=== PATIENT | male | born 2000 | race Caucasian/White ===

== ENCOUNTER 2020-04-05 19:40 | Outpatient (REF) | payer MEDICAID, SELFPAY | END 2020-04-05 20:00 | LOC: NCHCN 19:40 | PROVIDERS: PCP Nurse Practitioner Family; Visit Provider Nurse Practitioner Family | DX: L08.9 Local infection of the skin and subcutaneous tissue, unspecified (principal) | CPT/HCPCS: 87070; 87205 ==

== ENCOUNTER 2022-07-28 11:56 | Emergency (ER) | payer MEDICAID, SELFPAY ==
[2022-07-28 12:01] VITALS: BP 151/87; PULSE 83; RESP 18; TEMP 35.9; O2SAT 99
--- NOTE | 2022-07-28 12:25 | ED.GENADUL_ITS ---
Discharge Plan Disposition Patient Disposition: HOME Condition: Improving Discharge Details Clinical Impression: Abscess, intraoral Primary Care Provider: Tab Alexander ED Provider: Otf Quiroz Home Meds and New Rx's Prescriptions: New penicillin V potassium 500 mg tablet 500 mg PO TID 10 Days Qty: 30 0RF Discharge Instructions Instructions: Abscess (ED) Additional Instructions: Continue swish, gargle and spit with salt water today. Penicillin every 6 hours for the first 24 hours, then 3 times per day. Please follow-up with dentistry for recheck. See enclosed resources. Tylenol and/or ibuprofen as needed for pain. Continue to decrease your use of cigarettes. Medical Decision Making This is a 21-year-old male with poor dentition. He has had approximately 2 to 3 weeks of right lower mandible swelling and discomfort. Worse today and associated with more pronounced buccal aspect fluctuance. He does have evidence of abscess on initial exam. Consented for local anesthesia with initial needle aspiration of 4 cc purulent fluid subsequently the area was incised with an 11 blade and further purulent fluid was expressed. Patiently placed on penicillin. He will benefit from follow-up with dentistry and likely will need extractions. He is stable and improved at this time. HPI General Mode of arrival: ambulatory . Date/Time Provider Initiated Documentation: 07/28/22 11:58 . Limitations to Documentation: no limitations . Information obtained by: patient and family . History of Present Illness 21 year old M presents to the emergency department with the chief complaint of Right lower tooth infection and swelling, described as moderate, Quality is described as dull and constant, and is localized to the face and right. Patient reports no radiation. Patient started experiencing this day(s) and it has been constant. No relieving factors improve symptom(s), No ex acerbating factors reported . Patient notes denies cough and fever/chills. Patient did receive the following treatments prior to arrival, none Related Data Home Medications Medication Instructions Recorded Confirmed penicillin V potassium 500 mg 500 mg PO TID 10 days #30 tabs 07/28/22 tablet Previous Rx's Medication Instructions Recorded penicillin V potassium 500 mg 500 mg PO TID 10 days #30 tabs 07/28/22 tablet Allergies Allergy/AdvReac Type Severity Reaction Status Date / Time No Known Allergies Allergy Unverified 07/28/22 12:04 General Stated Complaint: DentalOral MED: 4 PFSH All Active Problems (Updated 07/28/22 @ 12:28 by Otf Quiroz MD) Abscess, intraoral (Acute) Social History Smoking/Tobacco Use Status: Current every day Smoking risk assessment performed?: Yes Alcohol Intake: current Alcohol Intake frequency: a few times a month Drug use: Daily Substance use type: marijuana Do you feel safe at home: Yes Do you feel safe in your relationship?: Yes Exam Narrative Exam Narrative: GEN: awake, alert, oriented 3. Pleasant, well groomed, interactive. HEAD: Normocephalic, atraumatic ENT: Mucous membranes moist, oropharynx with numerous missing teeth, partially broken teeth and dental caries. There is buccal aspect swelling all the lateral right mandible. No lingual aspect swelling, uvula is midline and the oropharynx is otherwise unremarkable EYES: PERRL, EOMI NECK: Full ROM, no QUINTIN, no menigismus CHEST/RESP: No respiratory distress pulse bilateral ABDOMEN: Soft, nontender, no mass. +Bowel sounds EXT: Full ROM, no edema, no rash Neuro: Grossly normal neurologic exam, conversant, interactive. Psych: Speech fluent, thoughts congruent, affect normal Course Vital Signs Vital signs: Vital Signs Temperature 35.9 C L 07/28/22 12:01 Pulse 83 07/28/22 12:01 Respiratory Rate 18 07/28/22 12:01 Blood Pressure 151/87 H 07/28/22 12:01 Pulse Oximetry 99 07/28/22 12:01 Temperature 35.9 C L 07/28/22 12:01 Temperature Source Temporal Artery Scan 07/28/22 12:01 Pulse 83 07/28/22 12:01 Respiratory Rate 18 07/28/22 12:01 Respiratory Effort Non-Labored 07/28/22 12:05 Blood Pressure 151/87 H 07/28/22 12:01 Blood Pressure Position Sitting 07/28/22 12:01 Pulse Oximetry 99 07/28/22 12:01 Oxygen Delivery Method Room Air 07/28/22 12:01 Oxygen Flow Rate 0 07/28/22 12:01 Procedures Abscess I/D Site: Other (Mouth) Side (if applicable): Right Local Anesthetic: Lidocaine 1% Amount of anesthesia used (mL): 2 Technique: Needle Aspiration and Incised with #11 Blade Amount of fluid expressed (mL): 4 PAWSS Have you Been Recently Intoxicated or Drunk Within the Last 30 days?: No Have you Ever Experienced Previous Episodes of Alcohol Withdrawal?: No Have you ever Experienced Withdrawal Seizures?: No Have you ever Experienced Delirium Tremens(DT)s?: No Have you ever undergone Alcohol Rehabilitation Treatment (i.e, inpt ot outpatient treatment programs)?: No Have you ever Experienced Blackouts?: No Have you ever Combined Alcohol with other Downers within the last 90 days?: No Have you ever Combined Alcohol with any other Substance of Abuse during the last 90 days?: No Positive Blood Alcohol level on Presentation? [PCS.BAL]: No Evidence of Increased Autonomic Activity (i.e. HR>120, tremor, sweating, agitation, nausea)?: No Result: 0
[2022-07-28] MEDS: Penicillin V POTASSIUM 500 MG TAB, 4 TABS/BTL PO (12:46)
== END 2022-07-28 12:51 | disposition home or self-care (01) ==
PROVIDERS: Emergency Provider Emergency Medicine; PCP Physician Assistant
DX: K12.2 Cellulitis and abscess of mouth (principal); F17.200 Nicotine dependence, unspecified, uncomplicated; K02.9 Dental caries, unspecified; K03.81 Cracked tooth
CPT/HCPCS: 41800; 99283; 99284

== ENCOUNTER 2022-07-31 06:42 | Emergency (ER) | payer OTHER, SELFPAY ==
[2022-07-31 06:51] VITALS: BP 143/82; PULSE 86; RESP 16; TEMP 36.8; O2SAT 99
--- NOTE | 2022-07-31 07:36 | ED.GENADUL_ITS ---
Discharge Plan Disposition Patient Disposition: HOME Condition: Serious Discharge Details Clinical Impression: Injury of toenail of right foot Primary Care Provider: Tab Alexander ED Provider: Jeffrey Woodard Home Meds and New Rx's Prescriptions: Continued penicillin V potassium 500 mg tablet 500 mg PO TID 10 Days Qty: 30 0RF Discharge Instructions Additional Instructions: Please keep dressing intact for the next 2 days. Change dressing daily thereafter and monitor for signs of infection including increased warmth, redness, swelling or discharge. Please follow-up with podiatry next week. Call today to schedule follow-up with Dr. Galvan. Return to the ER immediately for any worsening or new concerning symptoms. Stand Alone Forms: Work Release Referrals: Occupational Medicine [Provider Group] Gaviota Galvan DPM [[facility] STAFF PHYSICIAN] - Medical Decision Making 738 --21-year-old male here with injury to his right great toe just prior to arrival. Base of his great toenail has been pushed through proximal nail fold resulting in laceration. Consider fracture of the great toe. Will obtain x-ray. Bupivacaine digital block was performed without complication. --X-ray of the great toe interpreted by radiology:No evidence of acute fracture, dislocation, or subluxation. 830 -- Nail was partially removed while maintaiing intact cuticle, no significant nailbed laceration. Wound cleansed and nail inserted under nail fold and secured with two 4-0 chromic gut sutures. I spoke to Dr. Galvan, podiatry, she will be happy to see the patient in follow- up. Sterile dressing was applied. HPI General Mode of arrival: ambulatory . Date/Time Provider Initiated Documentation: 07/31/22 07:06 . Limitations to Documentation: no limitations . Information obtained by: patient . HPI Narrative: 21-year-old male here with chief complaint of right great toe injury. Patient notes he dropped a heavy wooden board on his toe just prior to arrival. He sustained wound at nailbed that has been bleeding. Pain is moderate to severe and worse with any movement of the toe. Related Data Home Medications Medication Instructions Recorded Confirmed penicillin V potassium 500 mg 500 mg PO TID 10 days #30 tabs 07/28/22 07/31/22 tablet Previous Rx's Medication Instructions Recorded penicillin V potassium 500 mg 500 mg PO TID 10 days #30 tabs 07/28/22 tablet Allergies Allergy/AdvReac Type Severity Reaction Status Date / Time No Known Allergies Allergy Unverified 07/31/22 06:53 General Stated Complaint: Laceration MED: 3 Review of Systems Musculoskeletal Musculoskeletal: Reports as per HPI Integumentary/Breasts Skin/Breast: Reports as per HPI [facility] All Active Problems (Updated 07/31/22 @ 08:51 by Jeffrey Woodard MD) Abscess, intraoral (Acute) Injury of toenail of right foot (Acute) Social History Smoking/Tobacco Use Status: Current every day Tobacco Type: cigarettes Smoking risk assessment performed?: Yes Alcohol Intake: current Alcohol Intake frequency: a few times a month Drug use: Daily Substance use type: marijuana Do you feel safe at home: Yes Do you feel safe in your relationship?: Yes Exam Const General: uncomfortable Extrem Right lower extremity: foot Details: normal capillary refill, tenderness Location: of the great toe Location: over the nailbed, laceration (Proximal nail has pushed through the nailbed resulting in laceration) and other (Distal sensation intact) Course Vital Signs Vital signs: Vital Signs Temperature 36.8 C 07/31/22 06:51 Pulse 86 07/31/22 06:51 Respiratory Rate 16 07/31/22 06:51 Blood Pressure 143/82 H 07/31/22 06:51 Pulse Oximetry 99 07/31/22 06:51 Temperature 36.8 C 07/31/22 06:51 Temperature Source Oral 07/31/22 06:51 Pulse 86 07/31/22 06:51 Respiratory Rate 16 07/31/22 06:51 Respiratory Effort Non-Labored 07/31/22 06:54 Blood Pressure 143/82 H 07/31/22 06:51 Pulse Oximetry 99 07/31/22 06:51 Pain Level 6 07/31/22 06:54 Procedures Nerve Block Nerve Block 1: Time out performed: Yes Local Anesthetic: Bupivicaine 0.5% Amount of anesthesia used (mL): 6 Side: right Nerve Blocks: digital Procedure Successful: Yes Patient Tolerated Procedure: well Complications: none
--- NOTE | 2022-07-31 07:50 | DI.RAD_ITS ---
Exam(s) XR TOE RT GREAT EXAM: XR TOE RT GREAT CLINICAL HISTORY: trauma, pain. TECHNIQUE: 2D digital imaging was performed. Three views were obtained. COMPARISON: No exams were available for comparison FINDINGS: BONES: No acute fracture is present. No bony destructive lesion is seen. JOINTS: No dislocation present. SOFT TISSUE: Normal. IMPRESSION: No evidence of acute fracture, dislocation, or subluxation. DATA REPOSITORY: RADIATION DOSE DELIVERED:
[2022-07-31 09:04] VITALS: BP 143/82; PULSE 86; RESP 16; TEMP 36.8; O2SAT 99
== END 2022-07-31 09:10 | disposition home or self-care (01) ==
PROVIDERS: Emergency Provider Student in an Organized Health Care Education/Training Program; PCP Physician Assistant
DX: S91.211A Laceration without foreign body of right great toe with damage to nail, initial encounter (principal); F17.210 Nicotine dependence, cigarettes, uncomplicated; W20.8XXA Other cause of strike by thrown, projected or falling object, initial encounter
CPT/HCPCS: 11760; 99283; 73660; 99282

== ENCOUNTER 2022-11-20 13:08 | Emergency (ER) | payer MEDICAID, SELFPAY ==
[2022-11-20 13:18] VITALS: BP 121/78; PULSE 75; RESP 17; TEMP 36.8; O2SAT 98
--- NOTE | 2022-11-20 13:52 | W.ED.GENAD ---
Discharge Plan Disposition Patient Disposition: Home Condition: Stable Discharge Details Clinical Impression: Other sprain of right elbow, initial encounter Primary Care Provider: Tab Alexander ED Provider: Beatriz Pro Home Meds and New Rx's Prescriptions: No Action No Known Home Meds Discharge Instructions Instructions: Elbow Sprain (ED) Additional Instructions: Rest ice compression elevation, please take Tylenol or Ibuprofen with food every 4-6 hours as needed for pain and swelling. Follow up with primary care provider in 3-5 days. Return to ED sooner if any worsening or concerns. Increase oral fluids. Stand Alone Forms: Work Release Referrals: Tab Alexander [Primary Care Provider] - Return if symptoms worsen Discharge Data Discharge Date/Time-TO BE ENTERED AT DEPARTURE: 11/20/22 14:00 Medical Decision Making Patient reports some right elbow pain with extension which has since resolved. No significant known injury. He is requesting a work note. Work note was given at this time I do not feel imaging is warranted due to no deformity no swelling. HPI General Mode of arrival: ambulatory. Date/Time Provider Initiated Documentation: 11/20/22 13:38. Limitations to Documentation: no limitations. Information obtained by: patient, RN notes reviewed and old records reviewed. HPI Narrative: Patient reports right elbow pain, no known injury reports pain with extension which has resolved. He is requesting a work note. Related Data Home Medications Medication Instructions Recorded Confirmed Unknown [No Known Home Meds] 08/11/22 11/20/22 Allergies Allergy/AdvReac Type Severity Reaction Status Date / Time No Known Allergies Allergy Verified 11/20/22 13:21 General Stated Complaint: Orthopedic MED: 4 Review of Systems Musculoskeletal Musculoskeletal: Reports as per HPI, Denies deformity, Reports arthralgias (Resolved) and Denies loss of height PFS All Active Problems (Updated 11/20/22 @ 13:54 by Beatriz Pro NP) Other sprain of right elbow, initial encounter (Acute) Medical History ADHD (attention deficit hyperactivity disorder) Fractured nose 2016 Surgical History History of testicular surgery as an infant; 2000 Social History Smoking/Tobacco Use Status: Current every day Tobacco Type: cigarettes Smoking risk assessment performed?: Yes Alcohol Intake: current Alcohol Intake frequency: a few times a month Drug use: Daily Substance use type: marijuana Do you feel safe at home: Yes Do you feel safe in your relationship?: Yes Exam Extrem General: normal to inspection Right upper extremity: normal to inspection, full ROM, normal capillary refill and no joint enlargement; no cyanosis and no edema Left upper extremity: normal to inspection, full ROM, normal capillary refill and no joint enlargement; no cyanosis and no edema Course Vital Signs Vital signs: Vital Signs Temperature 36.8 C 11/20/22 13:18 Pulse 75 11/20/22 13:18 Respiratory Rate 17 11/20/22 13:18 Blood Pressure 121/78 11/20/22 13:18 Pulse Oximetry 98 11/20/22 13:18 Temperature 36.8 C 11/20/22 13:18 Temperature Source Temporal Artery Scan 11/20/22 13:18 Pulse 75 11/20/22 13:18 Respiratory Rate 17 11/20/22 13:18 Respiratory Effort Non-Labored 11/20/22 13:20 Blood Pressure 121/78 11/20/22 13:18 Blood Pressure Position Sitting 11/20/22 13:18 Pulse Oximetry 98 11/20/22 13:18 Oxygen Delivery Method Room Air 11/20/22 13:18 Oxygen Flow Rate 0 11/20/22 13:18 Pain Level 6 11/20/22 13:20 PAWSS Have you Been Recently Intoxicated or Drunk Within the Last 30 days?: No Have you Ever Experienced Previous Episodes of Alcohol Withdrawal?: No Have you ever Experienced Withdrawal Seizures?: No Have you ever Experienced Delirium Tremens(DT)s?: No Have you ever undergone Alcohol Rehabilitation Treatment (i.e, inpt ot outpatient treatment programs)?: No Have you ever Experienced Blackouts?: No Have you ever Combined Alcohol with other Downers within the last 90 days?: No Have you ever Combined Alcohol with any other Substance of Abuse during the last 90 days?: No Result: 0
== END 2022-11-20 14:00 | disposition home or self-care (01) ==
PROVIDERS: Emergency Provider Registered Nurse Emergency; PCP Physician Assistant
DX: S53.491A Other sprain of right elbow, initial encounter (principal); X58.XXXA Exposure to other specified factors, initial encounter
CPT/HCPCS: 99282